=== PATIENT | female | born 1940 ===

== ENCOUNTER 2023-12-31 10:47 | Outpatient (RCR) | payer MEDICARE, OTHER ==
[~2023-12-31 10:47] MED LIST: BIAXIN 500MG T500 MG PO; FLEXERIL5 MG PO; NORCO 325 MG-51 TAB PO; VOLTAREN GEL 1%1 TU TP
== END 2024-01-24 | disposition home or self-care (01) ==
LOC: WSOT
DX: M19.041 Primary osteoarthritis, right hand (principal); M19.042 Primary osteoarthritis, left hand